=== PATIENT | male | born 1975 | race Two or more races ===

== ENCOUNTER 2025-03-19 14:33 | Inpatient (IN) | payer BC ==
[~2025-03-19] VITALS: Ht 182.9 cm; Wt 84.5 kg
--- NOTE | 2025-03-19 16:09 | ED.PDOC ---
Musculoskeletal HPI Comments A 49 YEAR OLD MALE PRESENTS TO THE ED WITH COMPLAINT OF LEFT LEG PAIN. PATIENT REPORTS THAT HE BEGAN TO EXPERIENCE LEFT LOWER LEG PAIN WITH ASSOCIATED SWELLING AND REDNESS FOR THE PAST 2 DAYS. PATIENT RELAYS THAT HE IS WORRIED IT MAY BE A DVT HE HAS HAD ONE PREVIOUSLY 25 YEARS AGO. WALKING AND STANDING INCREASES LEFT LOWER LEG PAIN. PATIENT DENIES FEVER, CHILLS, SHORTNESS OF BREATH, CHEST PAIN, ABDOMINAL PAIN, NAUSEA, VOMITING, HEADACHE, OR OTHER COMPLAINTS. NO OTHER SYMPTOMS OR MODIFYING FACTORS AT THIS TIME. PATIENT IS ALERT, ORIENTED X 4, AND HAS STEADY GAIT. Chief Complaint: Lower Extremity Time Seen by MD: 16:07 Reviewed Notes: Nurses Notes, Medications, Allergies Allergies: Coded Allergies: NO KNOWN ALLERGIES (Unverified , 03/19/25) Information Source: Patient Mode of Arrival: Ambulatory Location: Left Extremity Location: Leg Timing: Days Prehospital treatment: None Severity: Moderate Able to Move Extremity: Yes Bear Weight: Limited Pain: Moderate Hand Dominance: Right Mechanism: Spontaneous Circumstances: Spontaneous Onset of Symptoms: Spontaneous Symptoms: Swelling, Pain, Erythema DVT Risk Factors: DVT Associated signs and symptoms: Leg pain Past Medical History Past Medical History (Other): DVT 25 YEARS AGO Surgical History: Denies all surgeries Family History Family History: Reviewed,noncontributory to illness Social History Smoker: Cigarettes Alcohol: Denies ETOH Use Drugs: Denies Drug Use Lives In: Home Constitutional: denies: chills, diaphoresis, fatigue, fever, malaise, sweats, weakness, others EENTM: denies: blurred vision, double vision, ear bleeding, ear discharge, ear drainage, ear pain, ear ringing, eye pain, eye redness, hearing loss, mouth pain, mouth swelling, nasal discharge, nose bleeding, nose congestion, nose pain, photophobia, tearing, throat pain, throat swelling, voice changes, others Respiratory: denies: cough, hemoptysis, orthopnea, SOB at rest, shortness of breath, SOB with excertion, stridor, wheezing, others Cardiovascular: denies: chest pain, dizzy spells, diaphoresis, Dyspnea on exertion, edema, irregular heart beat, left arm pain, lightheadedness, palpitations, PND, syncope, others Gastrointestinal: denies: abdomen distended, abdominal pain, blood streaked bowels, constipated, diarrhea, dysphagia, difficulty swallowing, hematemesis, melena, nausea, poor appetite, poor fluid intake, rectal bleeding, rectal pain, vomiting, others Genitourinary: denies: burning, dysuria, flank pain, frequency, hematuria, incontinence, penile discharge, penile sore, pain, testicle pain, testicle swelling, urgency, others Neurological: denies: dizziness, fainting, headache, left sided numbness, left sided weakness, numbness, paresthesia, pre-existing deficit, right sided numbness, right sided weakness, seizure, speech problems, tingling, tremors, weakness, others Musculoskeletal: reports: others (SWELLING, PAIN, AND REDNESS OF LEFT LOWER LEG); denies: back pain, gout, joint pain, joint swelling, muscle pain, muscle stiffness, neck pain Integumetry: denies: bruises, change in color, change in hair/nails, dryness, laceration, lesions, lumps, rash, wounds, others Allergic/Immunocompromised: denies: Difficulty Healing, Frequent Infections, Hives, Itching, others Hematologic/Lymphatic: denies: anemia, blood clots, easy bleeding, easy bruising, swollen glands, others Endocrine: denies: excessive hunger, excessive sweating, excessive thirst, excessive urination, flushing, intolerance to cold, intolerance to heat, un explained weight gain, unexplained weight loss, others Psychiatric: denies: anxiety, bipolar disorder, depression, hopeless, panic disorder, schizophrenia, sleepless, suicidal, others All Other Systems: Reviewed and Negative Physical Exam General Appearance: No Apparent Distress, Normal HEENT: Normal ENT Inspection, PERRL/EOMI, Pharynx Normal, TMs Normal Neck: Full Range of Motion, Non-Tender, Normal, Normal Inspection Respiratory: Chest Non-Tender, Lungs Clear, No Accessory Muscle Use, No R espiratory Distress, Normal Breath Sounds Cardiovascular: No Edema, No JVD, No Murmur, No Gallop, Normal Peripheral Pulses, Regular Rate/Rhythm Breast Exam: Deferred Gastrointestinal: No Organomegaly, Non Tender, No Pulsatile Mass, Normal Bowel Sounds, Soft Genitalia: Deferred Pelvic: Deferred Rectal: Deferred Extremities: Decreased range of motion, No calf tenderness, Normal capillary refill, No pedal edema, Swelling (TENDERNESS AND SWELLING WITH MILD REDNESS ON LEFT LOWER LEG, +DVT SIGNS. ), Tender (AND SWELLING WITH SWELLING ON LEFT LOWER LEG, NO SKIN RASH AND OPEN WOUND SEEN. ) Musculoskeletal : Apperance: Normal Neurologic: Alert, [employer] II-XII nml as Tested, No Motor Deficits, Normal Affect, Normal Mood, No Sensory Deficits Cerebellar Function: Normal Reflexes: Normal Skin: Dry, Normal Color, Warm Peripheral Pulses: 2+ carotid (R), 2+ carotid (L), 2+ dorsalis pedis (R), 2+ dorsalis pedis (L) Lymphatic: No Adenopathy Was a procedure done? Was a procedure done?: No Differential Diagnosis EXT Differential Diagnosis: Cellulitis, Deep Vein Thrombosis X-Ray, Labs, Meds, VS Vital Signs Date Time Temp Pulse Resp B/P (MAP) Pulse Ox O2 Delivery O2 Flow Rate FiO2 03/19/25 17:01 76 18 98 Room Air 03/19/25 17:01 98.0 76 18 120/68 (85) 98 98.0 03/19/25 14:35 98.3 84 15 124/81 96 98.3 Lab Test 03/19/25 16:05 Range/Units White Blood Count 8.2 4.4-10.8 10^3/uL Red Blood Count 5.19 4.5-5.90 10^6/uL Hemoglobin 14.6 13.5-17.5 g/dL Hematocrit 42.9 41.0-53.0 % Mean Corpuscular Volume 82.8 80.0-100.0 fL Mean Corpuscular Hemoglobin 28.2 28.0-32.0 pg Mean Corpuscular Hemoglobin Concent 34.0 32.0-36.0 g/dL Red Cell Distribution Width 13.3 11.8-14.3 % Platelet Count 307 140-450 10^3/uL Mean Platelet Volume 7.5 6.9-10.8 fL Neutrophils (%) (Auto) 66.3 37.0-80.0 % Lymphocytes (%) (Auto) 20.2 10.0-50.0 % Monocytes (%) (Auto) 9.1 0.0-12.0 % Eosinophils (%) (Auto) 3.8 0.0-7.0 % Basophils (%) (Auto) 0.6 0.0-2.0 % Neutrophils # (Auto) 5.4 1.6-8.6 10 ^3/uL Lymphocytes # (Auto) 1.7 0.4-5.4 10 ^3/uL Monocytes # (Auto) 0.7 0-1.3 10 ^3/uL Eosinophils # (Auto) 0.3 0-0.8 10 ^3/uL Basophils # (Auto) 0 0-0.2 10 ^3/uL Nucleated Red Blood Cells 0.0 % Prothrombin Time 11.4 9.3-11.8 sec Prothrombin Time INR 1.08 0.9-1.15 Sodium Level 139 136-145 mmol/L Potassium Level 4.1 3.5-5.1 mmol/L Chloride Level 103 98-107 mmol/L Carbon Dioxide Level 28 20-31 mmol/L Anion Gap 8 5-15 Blood Urea Nitrogen 14 9-23 mg/dL Creatinine 0.99 0.700-1.30 mg/dL Glomerular Filtration Rate Calc 93 >90 mL/min BUN/Creatinine Ratio 14.1 10.0-20.0 Serum Glucose 95 74-106 mg/dL Calcium Level 9.3 8.7-10.4 mg/dL Current Medications Medications (Trade) Dose Ordered Sig/Darell Route Start Time Stop Time Status Last Admin Enoxaparin Sodium (Lovenox) 80 mg ONCE ONCE SC 03/19/25 16:30 03/19/25 16:32 DC 03/19/25 17:06 PATIENT: DARIANA GREENFIELD GACCT: [id number]: [id number] : 1975 LOC: ER ROOM / BED: / AGE / SEX: 49 / M ADM STATUS: REG ER SERVICE 1603 ORDERING PHYSICIAN: CONCHIS BELLE PROCEDURE(s): LLDVT - LT Lower DVT REASON: LEFT LOWER LEG PAIN ORDER NUMBER(s): [id number], ACCESSION NUMBER(s): [id number] TECHNIQUE: Real-time ultrasound imaging, with color Doppler and compression of the left common femoral vein, femoral vein, greater saphenous vein, and popliteal vein. INDICATION: LEFT LOWER LEG PAIN COMPARISON: None FINDINGS: The left common femoral vein demonstrates color flow and compressibility. The left proximal superficial femoral vein demonstrates occlusive thrombus and noncompressibility. This extends into the left mid to distal superficial femoral vein, left popliteal vein, left posterior tibial vein. Left lower extremity soft tissue edema. IMPRESSION: Extensive occlusive deep vein thrombosis within the left superficial femoral, popliteal, posterior tibial veins. Consider IR consultation for evaluation for thrombectomy. ATED BY: RANDY BURNETT MD DICTATED DATE/TIME: 03/19/251644 SIGNED BY: RANDY BURNETT MD SIGNED DATE/TIME: 03/19/251644 CC: X-Ray, Labs, Meds, VS Comment EXTERNAL MEDICAL RECORDS REVIEWED: [NONE] INDEPENDENT HISTORIANS: [NONE] SOCIAL DETERMINANTS OF HEALTH: [NONE] LABS ORDERED: PT, INR, CBC, BMP REVIEWED AND INTERPRETED RESULTS: LEFT LOWER EXTREMITY DVT IMAGING ORDERED: LEFT LOWER EXTREMITY DVT TREATMENTS ORDERED: LOVENOX 80MG SQ AND NORCO 5/325, 0.9 NS 125ML/HOUR PROCEDURES PERFORMED: NONE CRITICAL CARE TIME: NONE I HAVE DISCUSSED THE PATIENT WITH THE ATTENDING PHYSICIAN DR. JAMES AND HE AGREES WITH THE PATIENT'S PLAN OF CARE AND DISPOSITION. BASED ON HISTORY OF PRESENT ILLNESS, AND PHYSICAL EXAM, PATIENT WILL BE ADMITTED TO THE HOSPITAL FOR FURTHER IN-PATIENT EVALUATION AND TREATMENT. Time of 1ST Reevaluation: 16:30 Reevaluation 1ST: Unchanged Patient Education/Counseling: Diagnosis, Treatment Family Education/Counseling: Diagnosis, Treatment, No Family Present Departure 1 Departure Time of Disposition: 18:00 Impression: Primary Impression: Deep vein thrombosis (DVT) of popliteal vein of left lower extremity Qualified Codes: I82.432 - Acute embolism and thrombosis of left popliteal vein Additional Impressions: Deep vein thrombosis (DVT) of femoral vein of left lower extremity Qualified Codes: I82.412 - Acute embolism and thrombosis of left femoral vein Deep vein thrombosis (DVT) of tibial vein of left lower extremity Qualified Codes: I82.442 - Acute embolism and thrombosis of left tibial vein Disposition: ADMITTED INPATIENT Condition: Serious Critical Care Note Critical Care Time?: No Stability Stability form required: Yes Unstable for transfer: Requires medication, ED Physician Assesment, Possible rapid decline Heart Score Heart Score: Heart Score Response (Comments) Value History N/A 0 EKG N/A 0 Age N/A 0 Risk Factors N/A 0 Troponin N/A 0 Total 0 I personally scribed for CONCHIS BELLE ([email or web address]) on 03/19/25 at 16:09. Electronically submitted by Gilmar Gregorio ([email or web address]). I personally scribed for CONCHIS BELLE ([email or web address]) on 03/19/25 at 17:06. Electronically submitted by Gilmar Gregorio ([email or web address]). I personally scribed for CONCHIS BELLE ([email or web address]) on 03/19/25 at 17:19. Electronically submitted by Gilmar Gregorio ([email or web address]). CONCHIS BELLE Mar 19, 2025 16:09
--- NOTE | 2025-03-19 16:47 | DVH ---
TECHNIQUE: Real-time ultrasound imaging, with color Doppler and compression of the left common femoral vein, femoral vein, greater saphenous vein, and popliteal vein. INDICATION: LEFT LOWER LEG PAIN COMPARISON: None FINDINGS: The left common femoral vein demonstrates color flow and compressibility. The left proximal superficial femoral vein demonstrates occlusive thrombus and noncompressibility. This extends into the left mid to distal superficial femoral vein, left popliteal vein, left posterior tibial vein. Left lower extremity soft tissue edema. IMPRESSION: Extensive occlusive deep vein thrombosis within the left superficial femoral, popliteal, posterior tibial veins. Consider IR consultation for evaluation for thrombectomy.
[2025-03-19] MEDS: ENOXAPARIN SOD 80 MG/0.8ML SYRINGE SC ONE (17:06)
[2025-03-19 17:14] LABS: Hematocrit 42.9 % (41.0-53.0); Hemoglobin 14.6 g/dL (13.5-17.5); Mean Corpuscular Hemoglobin 28.2 pg (28.0-32.0); Mean Corpuscular Volume 82.8 fL (80.0-100.0); Nucleated Red Blood Cells % 0.0 %
[2025-03-19 17:24] LABS: Chloride 103 mmol/L (98-107); Potassium 4.1 mmol/L (3.5-5.1); Sodium 139 mmol/L (136-145)
[2025-03-19 17:25] LABS: Anion Gap 8 (5-15); Carbon Dioxide 28 mmol/L (20-31)
[2025-03-19 17:26] LABS: Calcium 9.3 mg/dL (8.7-10.4)
[2025-03-19 17:30] LABS: BUN/Creatinine Ratio 14.1 (10.0-20.0); Blood Urea Nitrogen 14 mg/dL (9-23); Glucose 95 mg/dL (74-106)
[2025-03-19 17:31] LABS: INR 1.08 (0.9-1.15); Prothrombin Time 11.4 sec (9.3-11.8)
[2025-03-19] MEDS: HYDROcodone-ACET 10/325MG TAB PO ONE (19:45)
[2025-03-19] MEDS: SODIUM CHLORIDE 0.9% 1,000 ML IV ONE (19:45)
[2025-03-19] MEDS: ACETAMINOPHEN 325 MG TAB PO PRN (19:45)
[2025-03-19] MEDS: MORPHINE SULFATE 4 MG/ML SYR/VIAL ONE (20:55)
[2025-03-19] MEDS: MORPHINE SULFATE INJ 2 MG/ml SYRG IV PRN (20:56)
[2025-03-19] MEDS: ONDANSETRON HCL 4 MG/2 ML VIAL IV PRN (20:56)
--- NOTE | 2025-03-19 21:54 | DVHHP2 ---
History of Present Illness Reason for Visit: Leg swelling History of Present Illness 49-year-old male presents for evaluation of left lower extremity swelling with tenderness. Patient reports a two day history of worsening left lower extremity swelling and tenderness at the calf. Denies trauma to the area. No fever or chills. Reports history of DVT 25 years ago. Denies chest pain or shortness for breath. No other acute complaints. Past Medical History DVT Past Surgical History Denies Family History Noncontributory Smoke: <1 pack per day ALCOHOL: none Drugs: None Lives: with Family Review of Systems Review of Systems Review of systems are currently negative otherwise addressed in HPI. Allergies: Coded Allergies: NO KNOWN ALLERGIES (Unverified , 03/19/25) Medications Current Medications Medications Dose Ordered Sig/Darell Route Start Time Stop Time Status Last Admin Dose Admin Enoxaparin Sodium 80 mg Q12HR SC 03/20/25 10:00 Acetaminophen/ Hydrocodone Bitart 1 tab Q4HP PRN PO 03/19/25 19:15 Ondansetron HCl 4 mg Q4HP PRN IV 03/19/25 19:15 03/19/25 20:56 4 MG Acetaminophen 650 mg Q6HP PRN PO 03/19/25 19:15 03/19/25 19:45 650 MG Morphine Sulfate 2 mg Q6HPRN PRN IV 03/19/25 19:15 03/19/25 20:56 2 MG Exam Vital Signs Vital Signs Date Time Temp Pulse Resp B/P (MAP) Pulse Ox O2 Delivery O2 Flow Rate FiO2 03/19/25 20:56 75 16 135/85 03/19/25 17:01 98 Room Air 03/19/25 17:01 98.0 98.0 Exam Gen: 49-year-old male in mild distress Skin: Warm, dry, normal color and texture, no rash. HEENT: Normocephalic atraumatic, mucous membranes moist and pink. Neck: Cervical and supraclavicular nodes normal without enlargement, trachea is midline, thyroid gland is normal without masses. Pulmonary: Clear to auscultation and percussion bilaterally. Cardiac: Regular rate and rhythm. No murmur Abdomen: Soft, nontender, nondistended, bowel sounds present all 4 quadrants, no guarding, no rigidity, no organomegaly. Extremities: No cyanosis, clubbing, left calf tenderness with mild swelling Neuro: Cranial nerves II through XII grossly intact, normal affect and speech, no focal motor deficits. Labs/Xrays ORDERING PHYSICIAN: CONCHIS BELLE PROCEDURE(s): LLDVT - LT Lower DVT REASON: LEFT LOWER LEG PAIN ORDER NUMBER(s): [id number], ACCESSION NUMBER(s): [id number] TECHNIQUE: Real-time ultrasound imaging, with color Doppler and compression of the left common femoral vein, femoral vein, greater saphenous vein, and popliteal vein. INDICATION: LEFT LOWER LEG PAIN COMPARISON: None FINDINGS: The left common femoral vein demonstrates color flow and compressibility. The left proximal superficial femoral vein demonstrates occlusive thrombus and noncompressibility. This extends into the left mid to distal superficial femoral vein, left popliteal vein, left posterior tibial vein. Left lower extremity soft tissue edema. IMPRESSION: Extensive occlusive deep vein thrombosis within the left superficial femoral, popliteal, posterior tibial veins. Consider IR consultation for evaluation for thrombectomy. Labs Test 03/19/25 16:05 Range/Units White Blood Count 8.2 4.4-10.8 10^3/uL Red Blood Count 5.19 4.5-5.90 10^6/uL Hemoglobin 14.6 13.5-17.5 g/dL Hematocrit 42.9 41.0-53.0 % Mean Corpuscular Volume 82.8 80.0-100.0 fL Mean Corpuscular Hemoglobin 28.2 28.0-32.0 pg Mean Corpuscular Hemoglobin Concent 34.0 32.0-36.0 g/dL Red Cell Distribution Width 13.3 11.8-14.3 % Platelet Count 307 140-450 10^3/uL Mean Platelet Volume 7.5 6.9-10.8 fL Neutrophils (%) (Auto) 66.3 37.0-80.0 % Lymphocytes (%) (Auto) 20.2 10.0-50.0 % Monocytes (%) (Auto) 9.1 0.0-12.0 % Eosinophils (%) (Auto) 3.8 0.0-7.0 % Basophils (%) (Auto) 0.6 0.0-2.0 % Neutrophils # (Auto) 5.4 1.6-8.6 10 ^3/uL Lymphocytes # (Auto) 1.7 0.4-5.4 10 ^3/uL Monocytes # (Auto) 0.7 0-1.3 10 ^3/uL Eosinophils # (Auto) 0.3 0-0.8 10 ^3/uL Basophils # (Auto) 0 0-0.2 10 ^3/uL Nucleated Red Blood Cells 0.0 % Prothrombin Time 11.4 9.3-11.8 sec Prothrombin Time INR 1.08 0.9-1.15 Sodium Level 139 136-145 mmol/L Potassium Level 4.1 3.5-5.1 mmol/L Chloride Level 103 98-107 mmol/L Carbon Dioxide Level 28 20-31 mmol/L Anion Gap 8 5-15 Blood Urea Nitrogen 14 9-23 mg/dL Creatinine 0.99 0.700-1.30 mg/dL Glomerular Filtration Rate Calc 93 >90 mL/min BUN/Creatinine Ratio 14.1 10.0-20.0 Serum Glucose 95 74-106 mg/dL Calcium Level 9.3 8.7-10.4 mg/dL SEPSIS Sepsis Screen Date sepsis recognized/suspect: Mar 19, 2025 Time Sepsis recognized/suspect: 1436 Recent Procedure: No On Antibiotic Therapy: No Respiratory Rate >20: No Heart Rate >90: No Temp<36 C (96.8 F) or >38.3 C: No SBP <90 or MAP <65 mmHG: No New Acute Mental Status Change: No Is the patient on CPAP, BIPAP,: No Physician Orders Lt Lower Dvt (03/19/25 16:03) Heplock Iv (03/19/25 ) Sodium Chloride 0.9% (03/19/25 18:15) * Radiologist Consult (03/19/25 19:07) Regular Diet (03/20/25 Breakfast) Basic Metabolic Panel (03/20/25 04:00) Admit (03/19/25 19:07) Hydrocodone-Acet 5/325mg Tab ([place] 5/32 (03/19/25 19:15) Ondansetron Hcl (Zofran) (03/19/25 19:15) Complete Blood Count (03/20/25 04:00) Condition: Stable (03/19/25 19:07) Acetaminophen Tablet (Tylenol Tablet) (03/19/25 19:15) Bedrest With Bathroom Privileg (03/19/25 19:07) Morphine Sulfate Injection (03/19/25 19:15) Enoxaparin Sodium (Lovenox) (03/20/25 10:00) Vital Signs Date Time Temp Pulse Resp B/P (MAP) Pulse Ox O2 Delivery O2 Flow Rate FiO2 03/19/25 20:56 75 16 135/85 03/19/25 17:01 76 18 98 Room Air 03/19/25 17:01 98.0 76 18 120/68 (85) 98 98.0 03/19/25 14:35 98.3 84 15 124/81 96 98.3 Laboratory Tests Test 03/19/25 16:05 White Blood Count 8.2 10^3/uL (4.4-10.8) Medications Medications Dose Ordered Sig/Darell Route Start Time Stop Time Status Last Admin Dose Admin Acetaminophen 650 mg Q6HP PRN PO 03/19/25 19:15 03/19/25 19:45 650 MG Acetaminophen/ Hydrocodone Bitart 1 tab ONCE ONCE PO 03/19/25 18:15 03/19/25 18:16 DC 03/19/25 19:45 1 TAB Enoxaparin Sodium 80 mg ONCE ONCE SC 03/19/25 16:30 03/19/25 16:32 DC 03/19/25 17:06 80 MG Morphine Sulfate 2 mg Q6HPRN PRN IV 03/19/25 19:15 03/19/25 20:56 2 MG Ondansetron HCl 4 mg Q4HP PRN IV 03/19/25 19:15 03/19/25 20:56 4 MG Sodium Chloride 1,000 ml @ 125 mls/hr Q8H ONCE IV 03/19/25 18:15 03/20/25 02:14 03/19/25 19:45 125 MLS/HR Assessment/Plan Assessment/Plan Assessment Left lower extremity DVT Plan Admit the patient to [facility] to the hospitalist Continue Lovenox subQ started in the emergency department Radiology consultation for possible thrombectomy Pain management Monitor for signs of respiratory distress. Continue treatment per orders. Plan discussed with: Patient My Orders Orders - ALEJANDRO GRANGER AGACNShantelle Procedure Category Date Status Time * Radiologist Consult CONS 03/19/25 Transmitted 19:07 Regular Diet DIET 03/20/25 Transmitted Breakfast Basic Metabolic Panel LAB 03/20/25 Verified 04:00 Admit ADMIT 03/19/25 Transmitted 19:07 Hydrocodone-Acet PHA 03/19/25 In Process 5/325mg Tab ([place] 19:15 Ondansetron Hcl PHA 03/19/25 In Process (Zofran) 19:15 Complete Blood Count LAB 03/20/25 Verified 04:00 Condition: Stable YANNA 03/19/25 In Process 19:07 Acetaminophen Tablet PHA 03/19/25 In Process (Tylenol Tablet) 19:15 Bedrest With Bathroom YANNA 03/19/25 In Process Privileg 19:07 Morphine Sulfate PHA 03/19/25 In Process Injection 19:15 Enoxaparin Sodium PHA 03/20/25 In Process (Lovenox) 10:00 Date of Service: Mar 19, 2025 Billing Provider: ALEJANDRO GRANGER Common Visit Codes: [id number] INP/OBS CARE (MOD) ALEJANDRO GRANGER Mar 19, 2025 21:54
[2025-03-19 22:56] VITALS: PULSE 70; RESP 18; O2SAT 97
[2025-03-19 22:57] VITALS: BP 98/68; PULSE 70; RESP 18; TEMP 98.1; O2SAT 98
[2025-03-19 23:11] VITALS: BP 98/68; PULSE 70; RESP 18; TEMP 97.7; O2SAT 97
[2025-03-20] VITALS (7 sets, daily range): BP systolic 98–113; BP diastolic 55–68; PULSE 62–93; RESP 16–18; TEMP 97.4–98.4; O2SAT 95–97
[2025-03-20 06:38] LABS: Hematocrit 40.8 % (41.0-53.0); Hemoglobin 14.1 g/dL (13.5-17.5); Mean Corpuscular Hemoglobin 28.3 pg (28.0-32.0); Mean Corpuscular Volume 81.9 fL (80.0-100.0); Nucleated Red Blood Cells % 0.1 %
[2025-03-20 06:51] LABS: Potassium 4.1 mmol/L (3.5-5.1); Sodium 140 mmol/L (136-145)
[2025-03-20 06:52] LABS: Anion Gap 5 (5-15); Carbon Dioxide 26 mmol/L (20-31)
[2025-03-20 06:53] LABS: Calcium 9.0 mg/dL (8.7-10.4)
[2025-03-20 06:58] LABS: BUN/Creatinine Ratio 16.7 (10.0-20.0); Blood Urea Nitrogen 13 mg/dL (9-23); Chloride 109 mmol/L (98-107); Glucose 92 mg/dL (74-106)
[2025-03-20] MEDS: HYDROcodone-ACET 5/325MG TAB PO PRN (09:10)
[2025-03-20] MEDS: ENOXAPARIN SOD 80 MG/0.8ML SYRINGE SC SCH (09:11)
[2025-03-20] MEDS: PANTOPRAZOLE 40 MG TAB PO ONE (10:56)
[2025-03-20] MEDS: LACTULOSE 20Gm/30ML SOLN PO SCH (10:56)
[2025-03-20 12:31] LABS: Urine Protein, UAD Negative (Negative)
[2025-03-20 12:36] LABS: Cannabinoid Screen, Urine Pos (NEGATIVE); Opiate Scree,Urine Pos (NEGATIVE)
[2025-03-20 12:41] LABS: Amphetamine Screen, Urine Neg (NEGATIVE); Barbiturate Scree,Urine Neg (NEGATIVE); Benzodiazephine Screen, Urine Neg (NEGATIVE); Cocaine Screen, Urine Neg (NEGATIVE); Phencyclidine Screen, Urine Neg (NEGATIVE)
[2025-03-20] MEDS: DOCUSATE SOD 100 MG CAP PO ONE (14:10)
--- NOTE | 2025-03-20 15:58 | DVHPNRES ---
Progress Note Date Seen: Mar 20, 2025 Resident Creating Document: ARABELLA MARTINO Medical Necessity Reason Pt with a Central, PICC or Fol: No Subjective Review of Systems Ruddy Salguero, a 49-year-old male with past medical history of DVT, no other significant history presented to the ER due to throbbing pain swelling in his left leg since last 3 days. He denies any recent travel, surgery, trauma or any other history. 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 He does not have to stand for a long time for his job. The patient mentions he has constipation since last 7 days, also he has mild abdominal pain occasionally. Does not have abdominal distention and he is passing flatus. He denies any shortness of breath, chest pain, fever, urinary symptoms or any other complaints at this time. Past medical history: DVT 25 years ago Past surgical history: Appendectomy Allergies: No known allergies Family history: Breast cancer and DVT in mother. Smokin pack years Alcohol: Quit 12 years ago. Previously used to drink occasionally. Drugs: Active marijuana user daily, he started smoking marijuana since he was 25 years old. Full code Objective vital signs Vital Sign Date Time Temp Pulse Resp B/P (MAP) Pulse Ox O2 Delivery O2 Flow Rate FiO2 03/20/25 12:23 98.0 93 18 111/55 (73) 97 98.0 03/20/25 08:00 Room Air* 0 21 Total Intake and Output 03/19/25 03/19/25 03/20/25 15:00 23:00 07:00 Intake Total 0 ml Output Total 0 ml Balance 0 ml medications Current Medications Medications Dose Ordered Sig/Darell Route Start Time Stop Time Status Last Admin Dose Admin Enoxaparin Sodium 80 mg Q12HR SC 03/20/25 10:00 03/20/25 09:11 80 MG Acetaminophen/ Hydrocodone Bitart 1 tab Q4HP PRN PO 03/19/25 19:15 03/20/25 09:10 1 TAB Ondansetron HCl 4 mg Q4HP PRN IV 03/19/25 19:15 03/19/25 20:56 4 MG Acetaminophen 650 mg Q6HP PRN PO 03/19/25 19:15 03/19/25 19:45 650 MG Morphine Sulfate 2 mg Q6HPRN PRN IV 03/19/25 19:15 03/19/25 20:56 2 MG Lactulose 30 ml Q4HR PO 03/20/25 10:00 03/20/25 14:10 30 ML Pantoprazole Sodium 40 mg DAILY@0600 PO 03/21/25 06:00 Docusate Sodium 100 mg BID PO 03/20/25 22:00 Examination Pt is lying on bed General Appearance: Alert, Oriented X3, Cooperative, Mild distress HEENT: Atraumatic, Mucous membranes moist/pink Respiratory: Clear to auscultation, Normal air movement, No added sounds Cardiovascular: Regular rate, Normal S1, Normal S2, No murmurs Abdominal/ : Active bowel sounds, Soft, no distention, no tenderness Extremities: Left leg erythema, Normal pulses, No tenderness/swelling Skin: No Significant rash, except past surgical scars Neuro: Normal speech, sensorimotor deficits none Psych/Mental Status: Mental status NL, Mood NL Nurse was there as house wrecker during examination laboratory and microbiology Laboratory Tests 03/20/25 05:00 Test 03/20/25 05:00 Range/Units Serum Glucose 92 74-106 mg/dL Labs and/or images reviewed: Labs reviewed by me, Image(s) reviewed by me Problem List/Assessment/Plan Problem List/Assessment/Plan Acute left lower extremity DVT Left lower extremity ultrasound: Extensive occlusive deep vein thrombosis within the left superficial femoral, popliteal, posterior tibial veins. Therapeutic Lovenox started Pain management Consulted IR for possible thrombectomy Constipation Docusate Lactulose Marijuana abuse disorder Patient is counseled cessation for more than 14 minutes GI prophylaxis: Pantoprazole DVT prophylaxis: Lovenox Diet: Regular Goals of care discussed with the patient for more than 27 minutes: Full code status Case discussed with Dr. Porter , patient and RN Plan discussed with: Patient, Other My Orders My Orders Orders - ARABELLA MARTINO RESIDENT Procedure Category Date Status Time Lactulose Oral PHA 03/20/25 In Process 10:00 Pantoprazole Tablet PHA 03/21/25 In Process (Protonix Tablet) 06:00 Visit Coding STANDARD RES Billing Provider: LISETH PORTER MD Date of Service if different f: Mar 20, 2025 Common Visit Codes: [id number] INP/OBS CARE(HIGH) Secondary Visit Codes: [id number] CARE PLAN 30 MINUTES ARABELLA MARTINO Mar 20, 2025 15:58 LISETH PORTER MD Mar 20, 2025 19:42
[2025-03-20] MEDS: DOCUSATE SOD 100 MG CAP PO SCH (21:41)
[2025-03-21 01:00] VITALS: BP 121/73; PULSE 68; RESP 18; TEMP 98.1; O2SAT 99
[2025-03-21 05:00] VITALS: BP 118/78; PULSE 64; RESP 15; TEMP 97.6; O2SAT 96
[2025-03-21] MEDS: PANTOPRAZOLE 40 MG TAB PO SCH (05:33)
[2025-03-21 06:22] LABS: Anion Gap 7 (5-15); Carbon Dioxide 26 mmol/L (20-31); Hematocrit 39.5 % (41.0-53.0); Hemoglobin 13.5 g/dL (13.5-17.5); Mean Corpuscular Hemoglobin 27.9 pg (28.0-32.0); Mean Corpuscular Volume 81.3 fL (80.0-100.0); Nucleated Red Blood Cells % 0.1 %; Potassium 3.8 mmol/L (3.5-5.1); Sodium 141 mmol/L (136-145)
[2025-03-21 06:24] LABS: Calcium 9.1 mg/dL (8.7-10.4)
[2025-03-21 06:28] LABS: BUN/Creatinine Ratio 12.7 (10.0-20.0); Blood Urea Nitrogen 10 mg/dL (9-23); Glucose 85 mg/dL (74-106)
[2025-03-21 06:33] LABS: Chloride 108 mmol/L (98-107)
[2025-03-21 08:00] VITALS: PULSE 61; RESP 16; O2SAT 96
[2025-03-21 08:37] VITALS: BP 133/86; PULSE 61; RESP 20; TEMP 98.4; O2SAT 96
[2025-03-21 13:00] VITALS: BP 115/77; PULSE 66; RESP 20; TEMP 98.4; O2SAT 98
[2025-03-21] MEDS ORDERED: APIX5TAB PO (13:06)
[2025-03-21 13:31] VITALS: BP 115/77; PULSE 66; RESP 20; TEMP 98.4; O2SAT 98
--- NOTE | 2025-03-21 18:47 | DVHDSRES ---
Discharge Summary Date of Admission Resident Creating Document: ARABELLA MARTINO Mar 19, 2025 at 19:07 Date of Discharge: Mar 21, 2025 Labs/Diagnostic Data: Laboratory Results Test 03/21/25 04:49 03/20/25 12:15 03/19/25 16:05 White Blood Count 7.6 10^3/uL (4.4-10.8) Red Blood Count 4.86 10^6/uL (4.5-5.90) Hemoglobin 13.5 g/dL (13.5-17.5) Hematocrit 39.5 % (41.0-53.0) Mean Corpuscular Volume 81.3 fL (80.0-100.0) Mean Corpuscular Hemoglobin 27.9 pg (28.0-32.0) Mean Corpuscular Hemoglobin Concent 34.3 g/dL (32.0-36.0) Red Cell Distribution Width 13.6 % (11.8-14.3) Platelet Count 331 10^3/uL (140-450) Mean Platelet Volume 7.7 fL (6.9-10.8) Neutrophils (%) (Auto) 61.0 % (37.0-80.0) Lymphocytes (%) (Auto) 25.4 % (10.0-50.0) Monocytes (%) (Auto) 8.7 % (0.0-12.0) Eosinophils (%) (Auto) 4.5 % (0.0-7.0) Basophils (%) (Auto) 0.4 % (0.0-2.0) Neutrophils # (Auto) 4.6 10 ^3/uL (1.6-8.6) Lymphocytes # (Auto) 1.9 10 ^3/uL (0.4-5.4) Monocytes # (Auto) 0.7 10 ^3/uL (0-1.3) Eosinophils # (Auto) 0.3 10 ^3/uL (0-0.8) Basophils # (Auto) 0 10 ^3/uL (0-0.2) Nucleated Red Blood Cells 0.1 % Sodium Level 141 mmol/L (136-145) Potassium Level 3.8 mmol/L (3.5-5.1) Chloride Level 108 mmol/L (98-107) Carbon Dioxide Level 26 mmol/L (20-31) Anion Gap 7 (5-15) Blood Urea Nitrogen 10 mg/dL (9-23) Creatinine 0.79 mg/dL (0.700-1.30) Glomerular Filtration Rate Calc 109 mL/min (>90) BUN/Creatinine Ratio 12.7 (10.0-20.0) Serum Glucose 85 mg/dL (74-106) Calcium Level 9.1 mg/dL (8.7-10.4) Urine Color Yellow (Yellow) Urine Clarity Clear (Clear) Urine pH 5.5 (5.0-9.0) Urine Specific [place] 1.018 (1.001-1.035) Urine Protein Negative (Negative) Urine Ketones 1+ (Negative) Urine Blood Negative /uL (Negative) Urine Nitrite Negative (Negative) Urine Bilirubin Negative (Negative) Urine Urobilinogen Normal mg/dL (Negative) Urine Leukocyte Esterase Negative /uL (Negative) Urine RBC 2 /hpf (0 - 3) Urine Microscopic WBC 1 /HPF (0-3) Urine Squamous Epithelial Cells None seen /hpf (<5) Urine Bacteria None seen /hpf (None Seen) Urine Mucus Few (None Seen) Urine Sperm Present /hpf (None Seen) Urine Glucose Normal mg/dL (Normal) Urine Opiates Screen Pos (NEGATIVE) Urine Fentanyl Screen Neg (NEGATIVE) Urine Barbiturates Screen Neg (NEGATIVE) Urine Phencyclidine Screen Neg (NEGATIVE) Urine Amphetamines Screen Neg (NEGATIVE) Urine Benzodiazepines Screen Neg (NEGATIVE) Urine Cocaine Screen Neg (NEGATIVE) Urine Cannabinoids Screen Pos (NEGATIVE) Prothrombin Time 11.4 sec (9.3-11.8) Prothrombin Time INR 1.08 (0.9-1.15) Other Laboratory Tests 03/21/25 04:49 Brief Hx & Hospital Course: Dariana Salguero, a 49-year-old male with past medical history of DVT, no other significant history presented to the ER due to throbbing pain swelling in his left leg since last 3 days. He denies any recent travel, surgery, trauma or any other history. 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 He does not have to stand for a long time for his job. The patient mentions he has constipation since last 7 days, also he has mild abdominal pain occasionally. Does not have abdominal distention and he is passing flatus. Past medical history: DVT 25 years ago Past surgical history: Appendectomy Allergies: No known allergies Family history: Breast cancer and DVT in mother. Smokin pack years Alcohol: Quit 12 years ago. Previously used to drink occasionally. Drugs: Active marijuana user daily, he started smoking marijuana since he was 25 years old. Full code Brief hospital course: On further evaluation, Left lower extremity ultrasound revealed extensive occlusive deep vein thrombosis within the left superficial femoral, popliteal, posterior tibial veins. Patient was treated with therapeutic lovenox. His constipation was managed with colace and lactulose. He was counseled regarding cessation of marijuana abuse. On the day of discharge patient was hemodynamically stable, patient and verbalized understanding of the treatment plan. He was discharged on Eliquis. Examination Pt is lying on bed General Appearance: Alert, Oriented X3, Cooperative, Mild distress HEENT: Atraumatic, Mucous membranes moist/pink Respiratory: Clear to auscultation, Normal air movement, No added sounds Cardiovascular: Regular rate, Normal S1, Normal S2, No murmurs Abdominal/ : Active bowel sounds, Soft, no distention, no tenderness Extremities: Left leg erythema, Normal pulses, No tenderness/swelling Skin: No Significant rash, except past surgical scars Neuro: Normal speech, sensorimotor deficits none Psych/Mental Status: Mental status NL, Mood NL Nurse was there as nursing scheduler during examination Goals of care discussed with the patient for more than 27 minutes: Full code status Case discussed with , patient and RN Operations or Procedures PATIENT: DARIANA SALGUERO ACCT: [id number] UNIT: [id number] : 1975 LOC: ER ROOM / BED: / AGE / SEX: 49 / M ADM STATUS: REG ER SERVICE 1603 ORDERING PHYSICIAN: CONCHIS BELLE PROCEDURE(s): LLDVT - LT Lower DVT REASON: LEFT LOWER LEG PAIN ORDER NUMBER(s): [id number], ACCESSION NUMBER(s): [id number] TECHNIQUE: Real-time ultrasound imaging, with color Doppler and compression of the left common femoral vein, femoral vein, greater saphenous vein, and popliteal vein. INDICATION: LEFT LOWER LEG PAIN COMPARISON: None FINDINGS: The left common femoral vein demonstrates color flow and compressibility. The left proximal superficial femoral vein demonstrates occlusive thrombus and noncompressibility. This extends into the left mid to distal superficial femoral vein, left popliteal vein, left posterior tibial vein. Left lower extremity soft tissue edema. IMPRESSION: Extensive occlusive deep vein thrombosis within the left superficial femoral, popliteal, posterior tibial veins. Consider IR consultation for evaluation for thrombectomy. Condition at Discharge: Stable Final Diagnosis/Problems List Acute left lower extremity DVT Constipation Marijuana abuse disorder Discharge Disposition: Home Discharge Instruct/Medications Diet: Regular Activity: No Restrictions, As Tolerated Follow Up/Referral: follow up outpatient with PCP, [facility] with Dr Martino, Monday pm clinic Medications: as per EMR Scheduled Apixaban Base (Eliquis), 5 MG PO BID Discharge Statement: "Patient was advised to return to the ER or call 911 if any headaches, dizziness, shortness of breath, chest pain, abdominal pain, bleeding, fevers, or worsening of medical condition. Patient was counseled about treatment plan, medications, possible side effects, patientverbalized understanding. All questions were answered to the best of my ability. This discharge took greater then 30 minutes in planning, reviewing documentation, counseling the patient, and discussing with other team members." ASSESSMENT ASSESSMENT Assessment Acute left leg DVT Visit Coding STANDARD RES Billing Provider: TERRI ELLIS MD Date of Service if different f: Mar 21, 2025 Common Visit Codes: 05331-TUN/OBS DISCH DAY >30min ARABELLA MARTINO Mar 21, 2025 18:47 TERRI ELLIS MD Mar 22, 2025 10:02
== END 2025-03-21 14:34 | disposition home or self-care (01) | DRG 301 ==
LOC: ER 14:33 → OVERFLOW 19:07 → EDBD 19:07 → WEST WING 22:51
PROVIDERS: ADMIT Internal Medicine; ATTEND Internal Medicine
DX: I82.412 Acute embolism and thrombosis of left femoral vein (principal); I82.432 Acute embolism and thrombosis of left popliteal vein; F12.10 Cannabis abuse, uncomplicated; I82.442 Acute embolism and thrombosis of left tibial vein; F17.210 Nicotine dependence, cigarettes, uncomplicated; K59.00 Constipation, unspecified; Z86.718 Personal history of other venous thrombosis and embolism; Z80.3 Family history of malignant neoplasm of breast; Z90.49 Acquired absence of other specified parts of digestive tract
CPT/HCPCS: 36415; 80048; 80307; 81001; 85025; 85610; 93971; 96372; G0378; J2405